=== PATIENT | female | born 1970 | race Caucasian/White ===

== ENCOUNTER 2018-03-31 06:42 | Emergency (ER) | payer SELFPAY ==
[2018-03-31 06:50] VITALS: BP 113/80; PULSE 73; RESP 18; TEMP 36.6; O2SAT 96; BMI 29.9
[2018-03-31] MEDS: KETOROLAC 60 MG/2 ML VIAL 30 MG IM (07:36)
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
[2018-03-31 08:00] VITALS: BP 131/79; PULSE 74; RESP 18; TEMP 36.6; O2SAT 98
== END 2018-03-31 08:09 | disposition home or self-care (01) ==
PROVIDERS: Emergency Provider Emergency Medicine
DX: S46.811A Strain of other muscles, fascia and tendons at shoulder and upper arm level, right arm, initial encounter (principal)
CPT/HCPCS: 96372; 99283; J1885

== ENCOUNTER → 2020-04-15 12:04 | Outpatient (CLI) | payer OTHER, SELFPAY ==
--- NOTE | 2020-04-15 | DI.MG.S_ITS ---
BILATERAL DIGITAL SCREENING MAMMOGRAM 3D/2D WITH CAD: 04/15/2020 CLINICAL: Routine screening. Baseline exam. No prior exams were available for comparison. The tissue of both breasts is heterogeneously dense. This may lower the sensitivity of mammography. Current study was also evaluated with a Computer Aided Detection (CAD) system. There is a focal asymmetry in the right breast central to the nipple middle depth. No other significant masses, calcifications, or other findings are seen in either breast. IMPRESSION: INCOMPLETE: NEEDS ADDITIONAL IMAGING EVALUATION The focal asymmetry in the right breast is indeterminate. Additional views with possible ultrasound are recommended. This exam was interpreted at Station ID: [id number]. NOTE: For mammograms, a report in lay terms will be sent to the patient. Approximately 15% of breast malignancies will not be visualized mammographically. In the management of a palpable breast mass, a negative mammogram must not discourage biopsy of a clinically suspicious lesion. Electronically Signed By: Araceli [email or web address]:04/15/2020 13:35:49 letter sent: Additional Imaging Needed ACR BI-RADS Category 0: Incomplete [id number]
== END ==
PROVIDERS: PCP Nurse Practitioner Family; Referring Provider Nurse Practitioner Family; Visit Provider Nurse Practitioner Family
DX: Z12.31 Encounter for screening mammogram for malignant neoplasm of breast (principal)
CPT/HCPCS: 77063; 77067

== ENCOUNTER → 2020-12-24 16:58 | Outpatient (CLI) | payer OTHER, SELFPAY ==
[2020-12-24] MEDS: COVID-19 VACC #1, MRNA(MOD) 100 MCG/0.5 ML VIAL IM (17:03)
== END ==
PROVIDERS: PCP Nurse Practitioner Family; Visit Provider Internal Medicine
DX: Z23 Encounter for immunization (principal)
CPT/HCPCS: 0011A; 91301

== ENCOUNTER → 2021-01-20 10:45 | Outpatient (CLI) | payer OTHER, SELFPAY ==
[2021-01-20] MEDS: COVID-19 VACC #2, MRNA(MOD) 100 MCG/0.5 ML VIAL IM (10:55)
== END ==
PROVIDERS: PCP Nurse Practitioner Family; Visit Provider Internal Medicine
DX: Z23 Encounter for immunization (principal)
CPT/HCPCS: 0012A; 91301

== ENCOUNTER → 2024-04-02 13:49 | Outpatient (CLI) | payer OTHER, SELFPAY ==
--- NOTE | 2024-04-02 14:06 | DI.RAD.S_ITS ---
PROCEDURE: XR FOOT LT MIN 3V INDICATIONS: BI FOOT/ANKLE ARTHRITIS TECHNIQUE: 3 views of the foot were acquired. COMPARISON: None. FINDINGS: Bones: No acute fractures or dislocations. No suspicious bony lesions. Severe 1st tarsometatarsal osteoarthrosis. Mild degenerative changes of the 1st metatarsophalangeal joint and at the interphalangeal joints of the toes. Small posterior and plantar calcaneal enthesophytes. Soft tissues: No tibiotalar joint effusion. Achilles tendon appears normal. IMPRESSION: 1. Multifocal left foot osteoarthrosis, severe at the 1st tarsometatarsal joint. 2. Calcaneal enthesopathy. Approved by: Mikel Li M.D. on 04/03/2024 at 9:58
--- NOTE | 2024-04-02 14:06 | DI.RAD.S_ITS ---
PROCEDURE: XR ANKLE LT MIN 3V INDICATIONS: BI FOOT/ANKLE ARTHRITIS TECHNIQUE: 3 views of the ankle were acquired. COMPARISON: None. FINDINGS: Bones: No acute fractures or dislocations. Ankle mortise is normally aligned. No suspicious bony lesions. Posterior and plantar calcaneal enthesophytes. Severe 1st tarsometatarsal osteoarthrosis. Soft tissues: No tibiotalar joint effusion. Achilles tendon appears normal. IMPRESSION: 1. Severe 1st tarsometatarsal osteoarthrosis. 2. Calcaneal enthesopathy. Approved by: Mikel Li M.D. on 04/03/2024 at 9:57
--- NOTE | 2024-04-02 14:06 | DI.RAD.S_ITS ---
PROCEDURE: XR ANKLE RT MIN 3V INDICATIONS: BI FOOT/ANKLE ARTHRITIS TECHNIQUE: 3 views of the ankle were acquired. COMPARISON: None. FINDINGS: Bones: No acute fractures or dislocations. Ankle mortise is normally aligned. No suspicious bony lesions. Posterior and plantar calcaneal enthesophytes. Soft tissues: No suspicious soft tissue calcifications. IMPRESSION: 1. No acute bony abnormality or significant effusion. 2. Calcaneal enthesopathy. Approved by: Mikel Li M.D. on 04/03/2024 at 9:51
--- NOTE | 2024-04-02 14:06 | DI.RAD.S_ITS ---
PROCEDURE: XR FOOT RT MIN 3V INDICATIONS: BI FOOT/ANKLE ARTHRITIS TECHNIQUE: 3 views of the foot were acquired. COMPARISON: None. FINDINGS: Bones: No acute fractures or dislocations. No suspicious bony lesions. Moderate degenerative changes are seen at the 1st tarsometatarsal joint. Mild calcaneocuboid degenerative changes. Mild degenerative changes at the 1st metatarsophalangeal joint and the interphalangeal joints of toes. Posterior and plantar calcaneal enthesophytes. Soft tissues: No suspicious soft tissue calcifications. IMPRESSION: 1. Multifocal right foot osteoarthrosis. Most notably and moderate at the 1st tarsometatarsal joint. 2. Calcaneal enthesopathy. Approved by: Mikel Li M.D. on 04/03/2024 at 9:55
== END ==
PROVIDERS: Referring Provider Podiatrist Foot & Ankle Surgery; Visit Provider Podiatrist Foot & Ankle Surgery
DX: M19.071 Primary osteoarthritis, right ankle and foot (principal); M19.072 Primary osteoarthritis, left ankle and foot; M77.32 Calcaneal spur, left foot; M77.31 Calcaneal spur, right foot
CPT/HCPCS: 73610; 73630

== ENCOUNTER 2024-06-22 06:48 | Emergency (ER) | payer OTHER, MEDICAID, SELFPAY ==
[2024-06-22 07:05] VITALS: BP 133/78; PULSE 80; RESP 17; TEMP 36.6; O2SAT 98; BMI 31.6
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
== END 2024-06-22 08:08 | disposition home or self-care (01) ==
PROVIDERS: Emergency Provider Emergency Medicine
DX: T63.441A Toxic effect of venom of bees, accidental (unintentional), initial encounter (principal)
CPT/HCPCS: 99281